=== PATIENT | male | born 1995 | race American Indian/Alaskan Native ===

== ENCOUNTER 2022-01-15 14:36 | Emergency (ER) | payer MEDICAID, OTHER ==
[2022-01-15 15:00] VITALS: BP 122/81; PULSE 106
[2022-01-15] MEDS ORDERED: Ketorolac 30 MG/ML SDV IVPUSH ONE (16:54)
[2022-01-15 17:24] LABS: ANION GAP 9.1 mEq/L (7-13); CHLORIDE,CL 104 mmol/L (98-107); SODIUM,NA 138 mmol/L (136-145)
== END 2022-01-15 18:44 | disposition home or self-care (01) ==
LOC: DL.ED 14:36
DX: N20.0 Calculus of kidney (principal); Z88.1 Allergy status to other antibiotic agents; Z72.0 Tobacco use; Z79.899 Other long term (current) drug therapy
CPT/HCPCS: 36415; 74176; 80053; 81001; 83735; 85025; 99284-25

== ENCOUNTER 2022-08-22 09:18 | Emergency (ER) | payer SELFPAY ==
[2022-08-22 09:35] VITALS: BP 128/77; PULSE 111
[2022-08-22] MEDS ORDERED: Diphtheria,Pertussis(Acell),Tetanus Vaccine 0.5 ML Syringe IM ONE (09:42)
[2022-08-22] MEDS ORDERED: Bacitracin Oint 1 GM U/D Packet TOP ONE (09:47)
[2022-08-22] MEDS ORDERED: Lidocaine 1% 10 ML MDV INJECT ONE (09:47)
== END 2022-08-22 10:53 | disposition home or self-care (01) ==
LOC: DL.ED 09:18
DX: S61.212A Laceration without foreign body of right middle finger without damage to nail, initial encounter (principal); S61.215A Laceration without foreign body of left ring finger without damage to nail, initial encounter; I10 Essential (primary) hypertension; E66.9 Obesity, unspecified; Z68.32 Body mass index [BMI] 32.0-32.9, adult; Z88.0 Allergy status to penicillin; Z88.1 Allergy status to other antibiotic agents; Z23 Encounter for immunization; W25.XXXA Contact with sharp glass, initial encounter
CPT/HCPCS: 12002; 90471; 90715; 99282; 99284

== ENCOUNTER 2022-09-23 13:21 | Emergency (ER) | payer MEDICAID ==
[2022-09-23 13:27] VITALS: BP 124/79; PULSE 98
== END 2022-09-23 16:35 ==
LOC: DL.ED 13:21
DX: S02.832A Fracture of medial orbital wall, left side, initial encounter for closed fracture (principal); I10 Essential (primary) hypertension; E66.9 Obesity, unspecified; Z68.32 Body mass index [BMI] 32.0-32.9, adult; Z88.0 Allergy status to penicillin; Z88.1 Allergy status to other antibiotic agents; Z79.899 Other long term (current) drug therapy; Z86.16 Personal history of COVID-19
CPT/HCPCS: 70450; 70486; 72125; 99283

== ENCOUNTER 2023-03-09 18:58 | Emergency (ER) | payer MEDICAID ==
[2023-03-09 19:04] VITALS: BP 133/73; PULSE 83
[2023-03-09 19:44] LABS: ANION GAP 12.4 mEq/L (7-13)
[2023-03-09] MEDS: cefTRIAXone 2 GM Vial IVPUSH ONE (19:51)
[2023-03-09] MEDS: Polyethylene Glycol 3350 Powder 17 GM Packet PO ONE (19:51)
== END 2023-03-09 20:04 | disposition home or self-care (01) ==
LOC: DL.ED 18:58
DX: K59.00 Constipation, unspecified (principal); K64.9 Unspecified hemorrhoids; J01.00 Acute maxillary sinusitis, unspecified; I10 Essential (primary) hypertension; E66.9 Obesity, unspecified; Z68.32 Body mass index [BMI] 32.0-32.9, adult; Z88.0 Allergy status to penicillin; Z88.1 Allergy status to other antibiotic agents
CPT/HCPCS: 36415; 74018; 80053; 83605; 85025; 96374; 99284; 99284-25; A9270-GY; J0696

== ENCOUNTER 2024-06-02 20:48 | Emergency (ER) | payer MEDICAID ==
[2024-06-02 21:03] VITALS: PULSE 78
[2024-06-02 21:07] VITALS: BP 114/74
== END 2024-06-02 21:18 | disposition home or self-care (01) ==
LOC: DL.ED 20:48
DX: S61.216A Laceration without foreign body of right little finger without damage to nail, initial encounter (principal); I10 Essential (primary) hypertension; E66.9 Obesity, unspecified; Z86.16 Personal history of COVID-19; Z68.29 Body mass index [BMI] 29.0-29.9, adult; Z79.899 Other long term (current) drug therapy; Z88.0 Allergy status to penicillin; Z88.1 Allergy status to other antibiotic agents; W26.0XXA Contact with knife, initial encounter
CPT/HCPCS: 12001; 99282

== ENCOUNTER 2024-08-24 19:38 | Emergency (ER) | payer MEDICAID ==
[2024-08-24] MEDS: diphenhydrAMINE 50 MG/ML SDV IVPUSH ONE (20:14)
[2024-08-24] MEDS: Famotidine 20 MG/2 ML SDV IVPUSH ONE (20:17)
[2024-08-24] MEDS: methylPREDNISolone Sodium Succinate 125 MG/2 ML SDV IVPUSH ONE (20:19)
[2024-08-24] MEDS: Bacitracin/Neomycin/Polymyxin B Oint 28.4 GM Tube TOP ONE (20:40)
[2024-08-24 20:49] VITALS: BP 110/64; PULSE 85
== END 2024-08-24 20:47 | disposition home or self-care (01) ==
LOC: DL.ED 19:38
DX: T63.441A Toxic effect of venom of bees, accidental (unintentional), initial encounter (principal); I10 Essential (primary) hypertension; E66.9 Obesity, unspecified; Z68.30 Body mass index [BMI] 30.0-30.9, adult; Z86.16 Personal history of COVID-19; F17.210 Nicotine dependence, cigarettes, uncomplicated; Z79.899 Other long term (current) drug therapy; Z88.0 Allergy status to penicillin; Z88.1 Allergy status to other antibiotic agents
CPT/HCPCS: 96374; 96375; 99282; 99283; A9270; J1200; J2919; J3490